=== PATIENT | male | born 1960 | race Caucasian/White ===

== ENCOUNTER 2016-12-28 08:46 | Emergency (ER) | payer OTHER ==
[~2016-12-28 08:46] MED LIST: ALEVE220 M1 PO; ALEVE220 MG PO; ARIXTRA2.5 MG/0.5 SQ; BAYER ASPIRIN325 M1 PO; COUMADIN5 M1 PO; CYCLOBENZAPRINE10 M1 PO; IBUPROFEN800 M1 PO; MILK OF MA2400 MG/10 PO; MIRALAX17 G1 PO; MOBIC15 MG PO; NO MEDS; NORCO 5/3251 TA2 NG; NORCO 5/3251 TAB PO; NORCO 7.5/3251 TAB PO; SENOKOT-S TABLE1 TAB PO; TYLENOL EXTRA500 MG PO; TYLENOL PO; TYLENOL325 MG PO; XARELTO10 MG PO
[2016-12-28] MEDS ORDERED: CYCLOBENZAPRINE5 M1 PO (10:56)
[2016-12-28] MEDS ORDERED: IBUPROFEN400 M1 PO (10:56)
[2016-12-28] MEDS ORDERED: CYCLOBENZAPRINE10 M1 PO (10:58)
== END 2016-12-28 11:27 ==
LOC: EDMED 08:46
DX: S39.012A Strain of muscle, fascia and tendon of lower back, initial encounter (principal); W01.0XXA Fall on same level from slipping, tripping and stumbling without subsequent striking against object, initial encounter; Y92.009 Unspecified place in unspecified non-institutional (private) residence as the place of occurrence of the external cause
CPT/HCPCS: J1885